=== PATIENT | male | born 1960 ===

== ENCOUNTER 2017-02-23 07:57 | Emergency (ER) | payer OTHER ==
[2017-02-23 07:58] VITALS: BMI 30.7
[2017-02-23] MEDS ORDERED: Oxycodone/Acetaminophen 5/325 mg Tab PO STA ×2 (08:26→12:53)
[2017-02-23 08:32] VITALS: O2SAT 99
--- NOTE | 2017-02-23 08:40 | ED PDOC ---
Arrival/HPI - General Chief Complaint: Upper Extremity Problem/Injury Time Seen by Provider: 02/23/17 08:22 Historian: Patient - History of Present Illness Narrative History of Present Illness (Text): 02/23/17 08:25 A 57 year old male, whose past medical history includes hypertension, right total hip replacement, right shoulder cuff repair, appendectomy, "stomach surgery?", and chronic right hip pain, presents to the emergency department status post reaching for a wire at work 5 days ago. The patient states when he bent down to reach for a wire he instantaneously felt right trapezoidal scalene right anterior shoulder pain that shoots down the arm. He notes for the last 4 days he has been having worsening right hip pain due to the colder weather and it the pain makes it difficult to ambulate. The patient denies any trauma, fever , headaches, chest pain, or any other complaints at this time. Time/Duration: < week (x 4-5 days ) Symptom Onset: Sudden Symptom Course: Unchanged Quality: Pressure Severity Level: Mild Activities at Onset: Light Context: Work Past Medical History - Provider Review Nursing Documentation Reviewed: Yes - Infectious Disease Hx of Infectious Diseases: None - Tetanus Immunization Tetanus Immunization: Unknown - Cardiac Hx Hypertension: Yes - Psychiatric Hx Substance Use: No - Surgical History Hx Orthopedic Surgery: Yes (right hip x2, right rotator cuff) Other/Comment: Left foot Surgery. Unknown ABD surgery. Right hip replacement - Suicidal Assessment Feels Threatened In Home Enviroment: No Family/Social History - Physician Review Nursing Documentation Reviewed: Yes Family/Social History: No Known Family HX Smoking Status: Never Smoked Hx Alcohol Use: No Hx Substance Use: No Hx Substance Use Treatment: No Allergies/Home Meds Allergies/Adverse Reactions: Allergies No Known Allergies Allergy (Verified 02/23/17 08:21) Review of Systems - Physician Review All systems were reviewed & negative as marked: Yes - Review of Systems Constitutional: absent: Fevers Cardiovascular: absent: Chest Pain Musculoskeletal: Other (right hip pain, right shoulder pain ) Neurological: absent: Headache Physical Exam Vital Signs Reviewed: Yes Vital Signs Temp Pulse Resp BP Pulse Ox 02/23/17 11:06 105 H 18 123/45 L 99 02/23/17 08:59 98.5 F 02/23/17 08:28 111 H 19 129/95 H 99 Temperature: Afebrile Blood Pressure: Hypertensive Pulse: Tachycardic Respiratory Rate: Normal Appearance: Positive for: Well-Appearing, Non-Toxic, Comfortable Pain Distress: None Mental Status: Positive for: Alert and Oriented X 3 - Systems Exam Head: Present: Atraumatic, Normocephalic Pupils: Present: PERRL Extroacular Muscles: Present: EOMI Conjunctiva: Present: Normal Mouth: Present: Moist Mucous Membranes Neck: Present: Normal Range of Motion Respiratory/Chest: Present: Clear to Auscultation, Good Air Exchange. No: Respiratory Distress, Accessory Muscle Use Cardiovascular: Present: Regular Rate and Rhythm, Normal S1, S2. No: Murmurs Abdomen: Present: Normal Bowel Sounds. No: Tenderness, Distention, Peritoneal Signs Back: Present: Normal Inspection Upper Extremity: Present: NORMAL PULSES, Tenderness (tenderness to the right trapezoidal scalene anterior shoulder; pain with ROM ). No: Cyanosis, Edema, Swelling Lower Extremity: Present: NORMAL PULSES, Tenderness (right hip pain; pain with ROM ). No: Edema Neurological: Present: GCS=15, CN II-XII Intact, Speech Normal Skin: Present: Warm, Dry, Normal Color. No: Rashes Psychiatric: Present: Alert, Oriented x 3, Normal Insight, Normal Concentration Medical Decision Making ED Course and Treatment: 02/23/17 08:41 Impression: A 57 year old male with right hip pain and right shoulder pain. Differential Diagnosis included but are not limited to: Plan: -- Pelvis CT -- Chest X-ray -- Radiology: Right shoulder -- Flexeril, Toradol, Percocet -- Reassess and disposition Progress Notes: - RAD Interpretation Radiology Orders: 02/23/17 08:23 PELVIS W/O PO OR IV CONTRAST [CT] Stat 02/23/17 08:24 SHOULDER RIGHT [RAD] Stat 02/23/17 08:27 CHEST TWO VIEWS (PA/LAT) [RAD] Stat - Medication Orders Current Medication Orders: Discontinued Medications Cyclobenzaprine HCl (Flexeril) 10 mg PO STAT STA Stop: 02/23/17 08:27 Last Admin: 02/23/17 08:50 Dose: 10 mg Ketorolac Tromethamine (Toradol) 60 mg IM STAT STA Stop: 02/23/17 08:27 Last Admin: 02/23/17 08:52 Dose: 60 mg MAR Pain Assessment Document 02/23/17 08:52 MR (Rec: 02/23/17 08:52 MR [id number]) Pain Reassessment Is this a pain reassessment? No Sleep Is patient sleeping during reassessment? No Presence of Pain Presence of Pain Yes Pain Scale Used Pain Scale Used Numeric Location Left, Right or Bilateral Right Pain Location Body Site Neck Shoulder Arm Description Description Cramping Intensity of Pain at present 6 Pain Behavior Facial Grimacing VS Changes Aggravating Factors Changing Position Alleviating Factors/Management Medication Techniques Alleviating Factors Medication IM Administration Charges Document 02/23/17 08:52 MR (Rec: 02/23/17 08:52 MR [id number]) Injection Site MAR Injection Site Left Deltoid Charges for Administration # of IM Administrations 1 Oxycodone/Acetaminophen (Percocet 5/325 Mg Tab) 1 tab PO STAT STA Stop: 02/23/17 08:27 Last Admin: 02/23/17 08:50 Dose: 1 tab MAR Pain Assessment Document 02/23/17 08:50 (Rec: 02/23/17 08:52 MR [id number]) Pain Reassessment Is this a pain reassessment? No Presence of Pain Presence of Pain Yes Pain Scale Used Pain Scale Used Numeric Location Left, Right or Bilateral Right Pain Location Body Site Neck Shoulder Elbow Description Description Cramping Intensity of Pain at present 6 Pain Behavior Facial Grimacing Aggravating Factors Changing Position Alleviating Factors/Management Medication Techniques Alleviating Factors Medication - Scribe Statement The provider has reviewed the documentation as recorded by the Tieshaibariana Palacio Provider Scribe Attestation: All medical record entries made by the Scribe were at my direction and personally dictated by me. I have reviewed the chart and agree that the record accurately reflects my personal performance of the history, physical exam, medical decision making, and the department course for this patient. I have also personally directed, reviewed, and agree with the discharge instructions and disposition. Disposition/Present on Arrival - Present on Arrival Any Indicators Present on Arrival: No History of DVT/PE: No History of Uncontrolled Diabetes: No Urinary Catheter: No History of Decub. Ulcer: No History Surgical Site Infection Following: None - Disposition Have Diagnosis and Disposition been Completed?: Yes Diagnosis: Shoulder arthritis, Heterotopic calcification, postoperative, Hip arthritis Disposition: HOME/ ROUTINE Disposition Time: 12:08 Patient Plan: Discharge Condition: FAIR Discharge Instructions (ExitCare): Hip Pain (ED), Osteoarthritis (ED), Shoulder Sprain (ED) Print Language: LAO Additional Instructions: Please follow up with your retular orthopedist with the either the xray readings or more preferably a copy of of the actual cd cotiiaing the images. Explain to him your visit her e and what I gave you. Your lenny should subside within the next 1-2 weeks in a steadily declining curve.If not improved by 3-4 weeks then please followup with yur original orthopedic surgeon, as you have already arranged . Prescriptions: Cyclobenzaprine [Cyclobenzaprine HCl] 10 mg PO Q8 PRN #30 tab PRN Reason: pain Ibuprofen [Motrin Tab] 600 mg PO Q6 PRN #50 tab PRN Reason: Pain, Moderate (4-7) oxyCODONE/Acetaminophen [Percocet 5/325 mg Tab] 1 ea PO Q6 PRN #18 tab PRN Reason: Pain, Severe (8-10) Forms: [facility] (I[place]ic), WORK NOTE
[2017-02-23 08:59] VITALS: TEMP 98.5
--- NOTE | 2017-02-23 10:21 | CT ---
PROCEDURE: CT of the pelvis without contrast HISTORY: rt hip prosthesisi now w/ increased pain COMPARISON: TECHNIQUE: CT of the pelvis was performed with sagittal and coronal reconstructions. FINDINGS: There is right hip prosthesis. There is no evidence of dislocation or loosening around the prosthesis. There is some heterotopic bone formation around the greater trochanter. The pelvis is unremarkable. The left hip is unremarkable. IMPRESSION: Negative study
--- NOTE | 2017-02-23 10:27 | RAD ---
PROCEDURE: Radiographs of the Right Shoulder HISTORY: exquisite shoulder pain COMPARISON: No prior. FINDINGS: BONES: Normal. No fracture. JOINTS: Mild degenerative changes in the acromioclavicular joint. The glenohumeral joint is unremarkable SOFT TISSUES: Normal. OTHER FINDINGS: None. IMPRESSION: No acute findings
--- NOTE | 2017-02-23 10:28 | RAD ---
HISTORY: routine mede xam COMPARISON: 07/29/2012 TECHNIQUE: Chest PA and lateral FINDINGS: LUNGS: No active pulmonary disease. PLEURA: No significant pleural effusion identified. No pneumothorax apparent. CARDIOVASCULAR: Normal. OSSEOUS STRUCTURES: No significant abnormalities. VISUALIZED UPPER ABDOMEN: Normal. OTHER FINDINGS: None. IMPRESSION: No active disease.
[2017-02-23 11:06] VITALS: PULSE 105; RESP 18
[2017-02-23 12:41] VITALS: BP 100/68
== END 2017-02-23 13:10 | disposition home or self-care (01) ==
LOC: ED 07:57
DX: M13.811 Other specified arthritis, right shoulder (principal); M13.851 Other specified arthritis, right hip; M61.411 Other calcification of muscle, right shoulder
CPT/HCPCS: 71020; 72192; 73030; 96372; 99284; J1885